=== PATIENT | male | born 1985 | race African-American/Black ===

== ENCOUNTER 2018-11-11 15:04 | Emergency (ER) | payer OTHER ==
[~2018-11-11] VITALS: Ht 185.4 cm; Wt 129.3 kg
[2018-11-11 15:10] VITALS: BP 143/80
--- NOTE | 2018-11-11 15:21 | PHYS DOC ---
Adult General Chief Complaint Chief Complaint: FINGER INJURY HPI HPI Patient is a 33-year-old otherwise healthy male who presents with a left fifth finger injury. He states he was trying to rebound a basketball when the basketball hit his finger awkwardly. Complains of intense pain and deformity. They did dione tape it at the scene which helped I can feel a little better. He still states the pain is severe[] Review of Systems Review of Systems Constitutional: Denies fever or chills [] Eyes: Denies change in visual acuity, redness, or eye pain [] HENT: Denies nasal congestion or sore throat [] Respiratory: Denies cough or shortness of breath [] Cardiovascular: No additional information not addressed in HPI [] GI: Denies abdominal pain, nausea, vomiting, bloody stools or diarrhea [] : Denies dysuria or hematuria [] Musculoskeletal: Denies back pain or joint pain [] Integument: Denies rash or skin lesions [] Neurologic: Denies headache, focal weakness or sensory changes [] Endocrine: Denies polyuria or polydipsia [] All other systems were reviewed and found to be within normal limits, except as documented in this note. Current Medications Current Medications Current Medications Medications (Trade) Dose Ordered Sig/Dea Start Time Stop Time Status Last Admin Dose Admin Oxycodone/ Acetaminophen (Percocet 10/325) 1 tab 1X ONCE 11/11/18 15:30 11/11/18 15:31 UNV Allergies Allergies Allergies Coded Allergies Type Severity Reaction Last Updated Verified Penicillins Allergy Unknown 11/11/18 Yes Physical Exam Physical Exam Constitutional: Well developed, well nourished, mild distress, non-toxic appearance. [] HENT: Normocephalic, atraumatic, bilateral external ears normal, oropharynx moist, no oral exudates, nose normal. [] Eyes: PERRLA, EOMI, conjunctiva normal, no discharge. [] Neck: Normal range of motion, no tenderness, supple, no stridor. [] Cardiovascular:Heart rate regular rhythm, no murmur [] Lungs & Thorax: Bilateral breath sounds clear to auscultation [] Abdomen: Bowel sounds normal, soft, no tenderness, no masses, no pulsatile masses. [] Skin: Warm, dry, no erythema, no rash. [] Back: No tenderness, no CVA tenderness. [] Extremities: Left fifth finger tender to palp decreased range of motion appears to be a flexion deformity at the DIP[] Neurologic: Alert and oriented X 3, normal motor function, normal sensory function, no focal deficits noted. [] Psychologic: Affect normal, judgement normal, mood normal. [] EKG EKG [] Radiology/Procedures Radiology/Procedures [] Impressions: Left fifth finger x-ray: PIP joint dislocation as interpreted by me Course & Med Decision Making Course & Med Decision Making Pertinent Labs and Imaging studies reviewed. (See chart for details) [Procedure: Finger reduction Digital block was performed with 6 mL of 1% lidocaine with excellent anesthesia then using axial traction and manipulation the finger was reduced without difficulty immediately after reduction patient was able to flex the PIP without difficulty.] Dragon Disclaimer Dragon Disclaimer This electronic medical record was generated, in whole or in part, using a voice recognition dictation system. Departure Departure: Impression: Primary Impression: Dislocation of proximal interphalangeal joint of left little finger Disposition: HOME, SELF-CARE Condition: IMPROVED Referrals: PCP,NO (PCP) Patient Instructions: Finger Dislocation, Finger Dislocation-SportsMed Additional Instructions: Ice 4-5 times daily for 20 minutes for the next 2 days. Ibuprofen 600 mg every 8 hours for discomfort Problem Qualifiers Primary Impression: Dislocation of proximal interphalangeal joint of left little finger Encounter type: initial encounter Qualified Codes: S63.287A - Dislocation of proximal interphalangeal joint of left little finger, initial encounter STONE SMIHT DO Nov 11, 2018 15:21
[2018-11-11] MEDS ORDERED: oxyCODONE/APAP 10/325 1 TAB TABLET PO ONE (15:30)
[2018-11-11] MEDS ORDERED: LIDOCAINE 1% Multi-Dose 20 ML VIAL. ONE (15:38)
--- NOTE | 2018-11-11 15:40 | RAD ---
EXAM: Left small finger, 3 views. HISTORY: Pain. COMPARISON: None. FINDINGS: 3 views of the left small finger are obtained. There is fifth proximal interphalangeal joint dislocation. No associated fracture is seen. There is no foreign body. IMPRESSION: Fifth proximal interphalangeal joint dislocation. Electronically signed by: Katarina Gallegos MD (11/11/2018 3:37 PM) [facility]
[2018-11-11] MEDS ORDERED: LIDOCAINE 1% Multi-Dose 20 ML VIAL. IJ ONE (15:45)
== END 2018-11-11 16:17 | disposition home or self-care (01) ==
LOC: ER 15:04 → EEVIPCON 15:04 → ER 16:17
DX: S63.287A Dislocation of proximal interphalangeal joint of left little finger, initial encounter (principal); Z88.0 Allergy status to penicillin; W21.05XA Struck by basketball, initial encounter; Y93.67 Activity, basketball; Y92.89 Other specified places as the place of occurrence of the external cause; Y99.8 Other external cause status
CPT/HCPCS: 26770; 73140; 99284